=== PATIENT | male | born 1985 | race Caucasian/White ===

== ENCOUNTER 2021-05-25 15:19 | Emergency (ER) | payer MEDICAID, SELFPAY ==
--- NOTE | ~2021-05-25 | XR_ITS ---
EXAMINATION: XR LUMBOSACRAL SPINE CLINICAL INFORMATION: Low back pain COMPARISON: None TECHNIQUE: Three views of the lumbosacral spine. FINDINGS: There is normal lumbar lordosis. The vertebral heights, alignment and disc heights are normal. There is no visible acute fracture, dislocation or lytic process. The paravertebral soft tissues are normal. XR/XR lumbar spine 2-3V IMPRESSION: Unremarkable lumbar spine examination.
[2021-05-25 15:50] VITALS: BP 113/62; PULSE 93; RESP 14; TEMP 36.7; O2SAT 97; BMI 24.8
--- NOTE | 2021-05-25 17:10 | ED.BACK ---
HPI - Back Pain/Injury General Chief Complaint: Back Pain/Injury Stated Complaint: backpain Source: patient Mode of arrival: ambulatory Limitations: no limitations History of Present Illness HPI Narrative: 35-year-old male presents with 3 months of lumbar back pain. Stated that the back pain started when he was shoveling his driveway, pain has not gone away and he has point tenderness noted to the lumbar spine. Does report some sciatic symptoms but does not describe ever experiencing cauda equina, loss of sensation to the extremities, loss of balance, or any other concerning symptoms. Does not report IVDA or fevers, chills, or trauma. MD elicited complaint: back pain Pertinent past history: prior back pain Onset (ago): month(s) (3) Timing: constant and progressively worsening Severity: moderate Similar Symptoms Previously: Yes Quality: aching, spasming and throbbing Location: lumbar spine Radiation: buttocks, right upper leg and right leg below the knee Exacerbating factors: movement and walking Relieving factors: immobilization Context: while lifting and turning/twisting Treatments prior to arrival: NSAIDS Work related injury: No Related Data Previous Rx's Medication Instructions Recorded cyclobenzaprine 10 mg tablet 10 mg PO TID PRN #20 tab 05/25/21 Allergies Allergy/AdvReac Type Severity Reaction Status Date / Time No Known Allergies Allergy Verified 05/25/21 17:11 Review of Systems Review of Systems: Constitutional: No Weight loss, No Fever, No Chills, ENT/Mouth: No Hearing loss, No Ear Pain, No Nasal Congestion, No Sinus Pain, No Hoarseness, No sore throat, No Rhinorrhea, No Swallowing Difficulty Cardiovascular: No Chest Pain, No SOB Respiratory: No Cough, No Dyspnea Gastrointestinal: No Nausea, No Vomiting, No Diarrhea, No abdominal Pain, No Hematochezia, No Melena Genitourinary: No Dysuria, No Urinary Frequency, No Hematuria, No Urinary Incontinence, Musculoskeletal: positive back pain Skin: No Skin Lesions, No rash Neuro: No Weakness, No Numbness, No Paresthesias, no loss of bowel or bladder incontinence, no saddle anesthesia Yes all other systems are reviewed and are negative [facility] Past Medical History Attestation statement: The following information was validated with the patient. Source: old records reviewed Social History Social History Advance Directives: No Advance Directives Information Provided: No Physical Exam Vital Signs: Vital Signs: Last Vital Signs Temp 98.1 F 05/25/21 15:50 Pulse 93 05/25/21 15:50 Resp 14 05/25/21 15:50 BP 113/62 05/25/21 15:50 Pulse Ox 97 05/25/21 15:50 BMI result Body Mass Index 24.8 Appearance: Alert. Oriented X3. No acute distress. Eyes: Pupils equal, round and reactive to light. ENT: Pharynx normal. Neck: Normal inspection. Neck supple. CVS: Normal heart rate and rhythm. Pulses normal. Respiratory: No respiratory distress. Breath sounds normal. Abdomen: Soft and nontender. Skin: Skin warm and dry. Normal skin color. Normal skin turgor. Muscular skeletal: Tenderness noted at L1-L2 with bilateral latissimus Hawkins tenderness Extremities: No lower extremity edema. Gait balance and coordinated Neuro: No motor deficit. No sensory deficit. Cranial nerves 2-12 intact Course Course Course Narrative: 35-year-old male presents with 3 months of back pain after shoveling. States that the back pain is intermittently worsening but never really goes away. Has some sciatic symptoms going down the right side. Denies signs and symptoms indicating cauda equina, has not lost balance, or sensation to bilateral lower extremities. Will order lumbar spine x-ray. Give Toradol and cyclobenzaprine for muscle relaxation. 17:56 lumbar spine x-rays negative for acute findings requiring emergent intervention. I will refer this patient to pain management for further follow-up. Patient is also advised to follow up with primary care physician for possible physical therapy.Patient verbalized understanding of and agrees to plan of care to discharge home. Verbalized understanding of signs and symptoms indicating need for emergent intervention MDM - Back Pain/Injury Differential Diagnosis Differential diagnosis: Likely lumbar radiculopathy, sciatica and strain of lumbar region Medical Records Attestation: I reviewed the patient's medical records. Imaging Data Lumbar spine x-ray: Attestation: I personally reviewed and interpreted this imaging study as follows: Radiologist's impression: EXAMINATION: XR LUMBOSACRAL SPINE CLINICAL INFORMATION: Low back pain COMPARISON: None TECHNIQUE: Three views of the lumbosacral spine. FINDINGS: There is normal lumbar lordosis. The vertebral heights, alignment and disc heights are normal. There is no visible acute fracture, dislocation or lytic process. The paravertebral soft tissues are normal. XR/XR lumbar spine 2-3V IMPRESSION: Unremarkable lumbar spine examination. Discharge Plan Discharge Clinical Impression: Strain of lumbar region, Sciatica Patient Disposition: Home, Self-Care Instructions: Sciatica (ED), Low Back Strain (ED), Back Pain (ED), R.I.C.E. Treatment (ED) Additional Instructions: You were evaluated for lower back pain. Lumbar spine x-rays are negative for acute findings requiring emergent intervention. Please follow-up with primary care physician for referral to physical therapy. Also, follow-up with Dr. Magana for pain management. I prescribed cyclobenzaprine. This medication is a muscle relaxer. This medication can cause drowsiness, delay reaction time, and increased risk for falls. Do not drive or operate machinery while taking this medication. Thank you for choosing this emergency department for evaluation. Please follow-up with primary care physician as needed. Return to the emergency department for any new, concerning, or worsening symptoms. Prescriptions: New cyclobenzaprine 10 mg tablet 10 mg PO TID PRN (Reason: muscle spasm) Qty: 20 0RF Referrals: Wallace Magana MD [Physician] - (lumbar back pain)
[2021-05-25] MEDS: Cyclobenzaprine HCl 10 MG TABLET PO (17:27)
[2021-05-25] MEDS: Ketorolac Tromethamine 60 MG/2 ML VIAL IM (17:28)
== END 2021-05-25 18:10 | disposition home or self-care (01) ==
PROVIDERS: Emergency Provider Emergency Medicine Emergency Medical Services
DX: S39.012A Strain of muscle, fascia and tendon of lower back, initial encounter (principal); M54.30 Sciatica, unspecified side; X58.XXXA Exposure to other specified factors, initial encounter; Y93.H1 Activity, digging, shoveling and raking; Y92.008 Other place in unspecified non-institutional (private) residence as the place of occurrence of the external cause; Y99.9 Unspecified external cause status
CPT/HCPCS: 72100; 96372; 99283; 99284; J1885